=== PATIENT | male | born 1940 | race Caucasian/White ===

== ENCOUNTER 2016-11-26 06:36 | Day surgery (SDC) | payer MEDICARE, OTHER ==
--- NOTE | ~2016-11-26 | EGD ---
EGD REPORT [facility] [address] [place] [address] NAME: JED AGUSTIN : [birth year] STATUS : REG [facility]#: [id number] AGE: 76 ADM/REG DATE : 11/26/16 MR#: [id number] REPORT SERV DATE: 11/26/16 DICTATED BY: ONEIDA SQUIRES DATE: 11/26/16 REPORT STATUS : Draft [facility]ANS[facility] BY: [facility] DATE: 11/26/16 [facility] Patient Name: Jed Agustin Date of : 1940 Attending MD: ONEIDA SQUIRES MD Procedure Date No Time: 11/26/2016 Procedure: Colonoscopy Indications: High risk colon cancer surveillance: Personal history of colonic polyps Referring MD: PUJA JORDAN Medicines: as per anesthesia Complications: No immediate complications. Procedure: Pre-Anesthesia Assessment: - ASA Grade Assessment: II - A patient with mild systemic disease. After I obtained informed consent, the scope was passed under direct vision. Throughout the procedure, the patient's blood pressure, pulse, and oxygen saturations were monitored continuously. The PCF [id number] was introduced through the anus and advanced to the cecum, identified by appendiceal orifice and ileocecal valve. The colonoscopy was performed without difficulty. The patient tolerated the procedure. The quality of the bowel preparation was adequate to identify polyps. Findings: The perianal and digital rectal examinations were normal. Three sessile polyps were found in the transverse colon. The polyps were 3 to 4 mm in size. These polyps were removed with a jumbo cold forceps. Resection and retrieval were complete. A sessile polyp was found in the sigmoid colon. The polyp was 4 mm in size. The polyp was removed with a jumbo cold forceps. Resection and retrieval were complete. Many small and large-mouthed diverticula were found in the sigmoid colon and in the descending colon. Internal hemorrhoids were found during endoscopy and were mild. Impression: - Three 3 to 4 mm polyps in the transverse colon. Resected and retrieved. - One 4 mm polyp in the sigmoid colon. Resected and retrieved. - Diverticulosis in the sigmoid colon and in the descending colon. - Internal hemorrhoids. EGD REPORT [address] [address] NAME: JED AGUSTIN : [birth year] STATUS : REG [facility] [place] PAT#: [id number] AGE: 76 ADM/REG DATE : 11/26/16 MR#: [id number] REPORT SERV DATE: 11/26/16 DICTATED BY: ONEIDA SQUIRES DATE: 11/26/16 REPORT STATUS : Draft TRANSCRIBED BY: [employer] DATE: 11/26/16 Recommendation: - Await pathology results. - Repeat colonoscopy for surveillance based on pathology results. Procedure Code(s): --- Professional --- 94965, Colonoscopy, flexible, proximal to splenic flexure; with biopsy, single or multiple Diagnosis Code(s): --- Professional --- D12.5, Benign neoplasm of sigmoid colon D12.3, Benign neoplasm of transverse colon K64.8, Other hemorrhoids K57.30, Diverticulosis of large intestine without perforation or abscess without bleeding Z86.010, Personal history of colonic polyps CPT copyright 2013 [employer]. All rights reserved. The codes documented in this report are preliminary and upon sales and marketing engineer review may be revised to meet current compliance requirements. ONEIDA SQUIRES MD 11/26/2016 8:22 AM This report has been signed electronically. Number of Addenda: 0 Note Initiated On: 11/26/2016 7:48 AM Scope Withdrawal Time 0 hours 9 minutes 53 seconds [address] [place] [address]
[~2016-11-26 06:36] MED LIST: ADVIL PO; ANACIN PO; ANDROGEL2.5 GM TOP; ANDROGEL5 TOP; ASAB PO; BYSTOLIC20 MG PO; DIOVAN40 MG PO; FLAG500TAB PO; FLOMAX4 PO; FLONASE NAS; GARLIC PO; LEVAQUIN5T PO; LOP25 PO; METAMUCIL CAN7 OZ PO; MOBIC7.5 PO; MVI PO; ORAZINC110 MG PO; PRESERVISION A1 EAC1 PO; PREV30 PO; PROTONIX PO; VITAMIN D1000 UNI1 PO; VITAMIN D31000 UNIT PO; ZANTAC300 MG PO; ZESTORETIC1 TA1 PO
== END 2016-11-26 23:59 | disposition home or self-care (01) ==
LOC: DMU 06:36
PROVIDERS: Internal Medicine Gastroenterology
PROC: 0DBN8ZZ Excision of Sigmoid Colon, Via Natural or Artificial Opening Endoscopic (ICD-10-PCS; 2016-11-26)
PROC: 0DBL8ZZ Excision of Transverse Colon, Via Natural or Artificial Opening Endoscopic (ICD-10-PCS; principal; 2016-11-26 08:00)
DX: Z12.11 Encounter for screening for malignant neoplasm of colon (principal); D12.3 Benign neoplasm of transverse colon; D12.5 Benign neoplasm of sigmoid colon; I10 Essential (primary) hypertension; K64.8 Other hemorrhoids; K57.30 Diverticulosis of large intestine without perforation or abscess without bleeding; Z86.010 Personal history of colon polyps; Z91.048 Other nonmedicinal substance allergy status; Z98.890 Other specified postprocedural states; L40.9 Psoriasis, unspecified; N40.0 Benign prostatic hyperplasia without lower urinary tract symptoms; K57.92 Diverticulitis of intestine, part unspecified, without perforation or abscess without bleeding; K21.9 Gastro-esophageal reflux disease without esophagitis; R13.10 Dysphagia, unspecified; K44.9 Diaphragmatic hernia without obstruction or gangrene; K22.2 Esophageal obstruction; K85.90 Acute pancreatitis without necrosis or infection, unspecified; M19.90 Unspecified osteoarthritis, unspecified site; M81.0 Age-related osteoporosis without current pathological fracture; Z90.89 Acquired absence of other organs; H35.30 Unspecified macular degeneration; Z86.19 Personal history of other infectious and parasitic diseases; Z87.891 Personal history of nicotine dependence; Z79.899 Other long term (current) drug therapy; Z79.51 Long term (current) use of inhaled steroids
CPT/HCPCS: 88305